=== PATIENT | male | born 1960 | race African-American/Black ===

== ENCOUNTER 2018-05-27 13:03 | Outpatient (CLI) | payer OTHER ==
--- NOTE | 2018-05-27 14:33 | RAD ---
CHEST PA AND LATERAL: HISTORY: A 57-year-old male with abnormal finding on lung field, R91.8 exposure to TB. COMPARISON: 01/07/2017. FINDINGS: There are some healed rib fractures bilaterally and postop changes in the right shoulder. Blunting o f the right costophrenic angle. Minimal increased linear interstitial markings bilaterally, stable. Heart size is normal. IMPRESSION: No confluent pneumonia, overt edema, or other acute process. Healed rib fractures bilaterally with s ome increased markings and right costophrenic angle blunting, stable. No evidence for active tubercu losis. POS: [facility]
== END 2018-05-27 13:04 | disposition home or self-care (01) ==
LOC: BICRAD 13:03
PROVIDERS: ATTEND Family Medicine
DX: R91.8 Other nonspecific abnormal finding of lung field (principal)
CPT/HCPCS: 71046